=== PATIENT | male | born 1945 | race Caucasian/White ===

== ENCOUNTER 2023-10-26 08:11 | Day surgery (SDC) | payer MEDICARE, OTHER ==
[2023-10-24 12:51] LABS: BASOPHILS # (AUTO) 0.06 K/uL (0.00-0.20); BASOPHILS % (AUTO) 0.6 % (0.0-5.0); EOSINOPHILS # (AUTO) 0.16 K/uL (0.00-0.70); EOSINOPHILS % (AUTO) 1.5 % (0.0-8.0); HEMATOCRIT 39.2 % (42-54); IMMATURE GRANULOCYTE ABSOLUTE 0.04 K/uL (0-1); LYMPHOCYTES # (AUTO) 2.6 K/uL (1.0-4.8); LYMPHOCYTES % (AUTO) 23.9 % (21.0-51.0); MEAN CORPUSCULAR HEMOGLOBIN 29.6 pg (27.0-33.0); MEAN CORPUSCULAR HGB CONC 34.4 g/dL (32.0-36.0); MONOCYTES # (AUTO) 0.8 K/uL (0.1-1.0); MONOCYTES % (AUTO) 7.5 % (3.0-13.0); NEUTROPHILS # (AUTO) 7.2 K/uL (1.8-7.7); NEUTROPHILS % (AUTO) 66.1 % (40.0-77.0); PLATELET COUNT (AUTO) 187 K/uL (130-400); RED BLOOD CELL COUNT(AUTO) 4.56 MIL/uL (4.50-6.20); RED CELL DISTRIBUTION WIDTH 13.8 % (11.0-15.5); WHITE BLOOD COUNT (AUTO) 10.9 K/uL (4.8-10.8)
[2023-10-24 13:30] VITALS: BP 118/63; PULSE 59; RESP 18
[~2023-10-26] VITALS: Ht 177.8 cm; Wt 109.6 kg
[2023-10-26] VITALS (13 sets, daily range): BP systolic 100–111; BP diastolic 55–70; PULSE 56–69; RESP 12–20
[~2023-10-26 08:11] MED LIST: AMOX1TAB16 PO; ATOR-2 PO; CHOL500050 PO; SACU1TAB4 PO; SOTA80TA PO; TEST5GEL18 TP; TURMERIC PO; VITAMIN C PO; [UNRECOGNIZED DRUG - CODE] PO
[2023-10-26] MEDS: GENTAMICIN 80 MG/NS 100 ML PB 100 ML IV ONE (10:27)
[2023-10-26] MEDS: LACTATED RINGERS 1000ML 1,000 ML IV ONE (10:27)
[2023-10-26] MEDS: CEFTRIAXONE 1G VIAL ONE (10:27)
[2023-10-26 10:41] LABS: POTASSIUM 4.2 mmol/L (3.5-5.1)
[2023-10-26] MEDS: CEFOXITIN SODIUM 1 GM VIAL IVPB ONE (11:00)
[2023-10-26] MEDS ORDERED: PROPOFOL 10 MG/ML 20ML VIAL IV ONE (11:00)
[2023-10-26] MEDS ORDERED: MIDAZOLAM HCL 1 MG/ML 2ML VIAL ONE (11:01)
[2023-10-26] MEDS ORDERED: LIDOCAINE HCL 2% PF 20 ML JEL DISP.SYRIN MM ONE (11:02)
[2023-10-26] MEDS ORDERED: FENTANYL CITRATE PF 50 MCG/1 ML 2ML VIAL ONE (11:02)
[2023-10-26] MEDS: LIDOCAINE HCL 2% PF 20 ML JEL DISP.SYRIN MM ONE (11:09)
== END 2023-10-26 12:45 | disposition home or self-care (01) ==
LOC: DAH 08:11
PROVIDERS: ATTEND Urology
DX: R97.20 Elevated prostate specific antigen [PSA] (principal); C61 Malignant neoplasm of prostate; N40.0 Benign prostatic hyperplasia without lower urinary tract symptoms; K64.4 Residual hemorrhoidal skin tags; N41.1 Chronic prostatitis; I10 Essential (primary) hypertension; E66.9 Obesity, unspecified; I11.0 Hypertensive heart disease with heart failure; I50.9 Heart failure, unspecified; Z98.890 Other specified postprocedural states; Z80.3 Family history of malignant neoplasm of breast; Z82.49 Family history of ischemic heart disease and other diseases of the circulatory system; Z80.42 Family history of malignant neoplasm of prostate; Z68.34 Body mass index [BMI] 34.0-34.9, adult
CPT/HCPCS: 85025; 36415 ×2; 93005; 55700; 80048; 88305; 76872; 76942; A6260; A4663; J7120; J0696; J2704; J1580; J0694; A4215 ×2; A4649; A4223; A4222; A4221; A4600; A4510; J2250; J3010; J3490